=== PATIENT | male | born 1940 | race Caucasian/White ===

== ENCOUNTER → 2017-01-06 | Outpatient (CLI) | payer MEDICARE ==
--- NOTE | ~2017-01-06 | CT71 ---
[facility] A Service of [facility] RADIOLOGY TEXT RESULTS PATIENT: CHANELLE TITUS LOCATION: [facility] : 38 UNIT #: [id number] AGE: [address]: Roni Medellin II, MD SEX: M ORDER DR: [id number] [facility] [address] [place], [place] [address] [id number] O MR#: [id number] Acc #: [id number] NAME: CHANELLE TITUS : 1940 SEX: M STUDY DATE/TIME: 01/06/2017 9:11 UNIT: [facility] ROOM: STUDY DESCRIPTION: CT Head Wo Contrast Attending Physician: Roni Medellin II., M.D. Referring Physician: Roni Medellin II., M.D. Ordering Physician: Roni Medellin II., M.D. Primary Care Physician: Reg Maier M.D. MEDICAL IMAGING REPORT This report is preliminary unless electronic signature is present EXAM Noncontrast CT head. DATE 01/06/2017 HISTORY Chronic daily headaches in the frontal regions since falling approximately 1 month ago. Patient fell face first and hit forehead and facial area. Additional history of diabetes, hypertension, and cardiac disease. COMPARISON MRI brain without and with contrast 02/06/2014. CT head without contrast 10/28/2012. TECHNIQUE This CT exam was performed with one or more of the following radiation dose reduction techniques: automatic exposure control, adjustment of mA and/or kV according to patient size, and iterative reconstruction. FINDINGS Mild generalized parenchymal atrophy is present with compensatory prominence of ventricles and extraaxial spaces, which appears to have slightly progressed since the 2012 examination. No acute intracranial hemorrhage, mass lesion, mass effect, or midline shift is seen. Arora matter-white matter junction distinction appears preserved and there is no convincing evidence of acute or evolving infarct. Mild generalized paranasal sinus mucosal thickening is present, which appears significantly improved compared to the 10/28/2012 examination. Mastoid air cells are clear. No displaced calvarial fracture is identified. [facility] A Service [facility] RADIOLOGY TEXT RESULTS PATIENT: CHANELLE TITUS LOCATION: [facility] : 38 UNIT #: [id number] AGE: [address]: Roni Medellin II, MD SEX: M ORDER DR: IMPRESSION 1. No acute intracranial findings. 2. Mild atrophy, slightly progressed since the 10/28/2012 examination. Dictated by... Jessica Christie M.D. THIS IS AN ELECTRONICALLY VERIFIED REPORT Jessica Christie M.D. at 01/09/2017 8:31 AM MADELIN/hakeem TD: 01/06/2017 10:47 JOB #: [id number] MEDICAL IMAGING REPORT Page 1 of 1 COPY
== END | disposition home or self-care (01) ==
LOC: CCAT 08:50
DX: R51 Headache (principal); G31.9 Degenerative disease of nervous system, unspecified
CPT/HCPCS: 70450